=== PATIENT | male | born 2005 | race Caucasian/White ===

== ENCOUNTER 2024-05-05 22:30 | Emergency (ER) | payer BC, OTHER ==
[2024-05-05] MEDS: Ibuprofen 200 MG Tab PO ONE (23:05)
== END 2024-05-05 23:43 | disposition home or self-care (01) ==
LOC: VM.ED 22:30
DX: S93.602A Unspecified sprain of left foot, initial encounter (principal); X50.9XXA Other and unspecified overexertion or strenuous movements or postures, initial encounter
CPT/HCPCS: 73630-LT; 99283; A9270-GY